=== PATIENT | female | born 1985 | race Two or more races ===

== ENCOUNTER 2017-02-02 19:53 | Emergency (ER) | payer OTHER ==
[~2017-02-02] VITALS: Ht 165.1 cm; Wt 67.4 kg
[2017-02-02 20:03] VITALS: BP 109/70
[2017-02-02 22:30] LABS: HIV 1&2 ANTIBODY SCREEN Nonreactive (Nonreactive); HIV-1 p24 ANTIGEN Nonreactive (Nonreactive)
[2017-02-03 11:19] LABS: HEP B SURF. AB 42.7 mIU/mL (0.0-10.0)
== END 2017-02-02 22:06 | disposition home or self-care (01) ==
LOC: ED 21:29
DX: R04.2 Hemoptysis (principal)
CPT/HCPCS: 36415; 86703; 86706; 86803; 87899; 99284; G0435

== ENCOUNTER 2017-09-16 16:09 | Emergency (ER) | payer OTHER ==
[~2017-09-16] VITALS: Ht 165.1 cm; Wt 56.0 kg
[2017-09-16 16:14] VITALS: BP 118/83
[2017-09-16] MEDS ORDERED: DIPH,PERTUSS(ACELL),TET VAC/PF 0.5 ML IM-VACC ONE ×2 (16:46→17:00)
== END 2017-09-16 17:45 | disposition home or self-care (01) ==
LOC: ED 17:12
DX: S61.233A Puncture wound without foreign body of left middle finger without damage to nail, initial encounter (principal); W22.8XXA Striking against or struck by other objects, initial encounter; Y93.F9 Activity, other caregiving; Y99.8 Other external cause status; Y92.149 Unspecified place in prison as the place of occurrence of the external cause
CPT/HCPCS: 36415; 86705; 86706; 86803; 87340; 87806; 90471; 90715; 99284; G0475